=== PATIENT | male | born 1960 | race Hispanic/Latino ===

== ENCOUNTER 2022-08-07 07:45 | Day surgery (SDC) | payer OTHER ==
[2022-08-05 11:19] LABS: BASOPHILS % (AUTO) 0.8 % (0.0-5.0); EOSINOPHILS % (AUTO) 2.7 % (0.0-8.0); HEMATOCRIT 37.4 % (42-54); LYMPHOCYTES % (AUTO) 22.2 % (21.0-51.0); MEAN CORPUSCULAR HEMOGLOBIN 26.6 pg (27.0-33.0); MEAN CORPUSCULAR HGB CONC 31.8 g/dL (32.0-36.0); MEAN CORPUSCULAR VOLUME 83.5 fL (79-99); MONOCYTES % (AUTO) 11.3 % (3.0-13.0); NEUTROPHILS % (AUTO) 62.5 % (40.0-77.0); PLATELET COUNT (AUTO) 189 K/uL (130-400); RED BLOOD CELL COUNT(AUTO) 4.48 MIL/uL (4.50-6.20); WHITE BLOOD COUNT (AUTO) 7.4 K/uL (4.8-10.8)
[2022-08-05 11:25] LABS: ALBUMIN 3.5 g/dL (3.5-5.0)
[2022-08-05 11:37] LABS: CRP QUANTITATIVE < 2.00 mg/L (0.00-9.0)
[2022-08-06 11:18] VITALS: BP 136/73
[2022-08-07] VITALS (18 sets, daily range): BP systolic 98–131; BP diastolic 60–76
[~2022-08-07] VITALS: Ht 182.9 cm; Wt 112.7 kg
[~2022-08-07 07:45] MED LIST: ASCO500C18 PO; ATOR-2 PO; BUPIVACAINE/PF 0.25% 30ML VIAL IJ ONE; CEFAZOLIN SODIUM 1 GM VIAL IVP SCH; FISH1CAP20 PO; GABA300C PO; HYDR-3421 PO; HYDR25TA PO; LISI20TA24 PO; METF750T46 PO; METO-409 PO; NALO4SPR3 NS; [UNRECOGNIZED DRUG - CODE] TP; [UNRECOGNIZED DRUG - OTHER] TP; vitamin d PO
[2022-08-07] MEDS ORDERED: 0.9%NACL 1000ML 1,000 ML IV ONE (08:07)
[2022-08-07] MEDS ORDERED: MIDAZOLAM HCL 1 MG/ML 2ML VIAL ONE (08:56)
[2022-08-07] MEDS ORDERED: FENTANYL CITRATE PF 50 MCG/1 ML 2ML VIAL ONE (08:56)
[2022-08-07] MEDS ORDERED: PROPOFOL 10 MG/ML 20ML VIAL IV ONE (08:56)
[2022-08-07] MEDS ORDERED: ONDANSETRON 4MG INJ ONE ×2 (09:02→10:46)
[2022-08-07] MEDS ORDERED: DEXAMETHASONE SOD PHOSPHATE 10MG/ML 1ML VIAL ONE (09:02)
[2022-08-07] MEDS ORDERED: KETOROLAC 30MG VIAL (30MG/ML) ONE (09:02)
[2022-08-07] MEDS ORDERED: MEPERIDINE-PF 25 MG/ML SYG ONE (10:46)
== END 2022-08-07 13:15 | disposition home or self-care (01) ==
LOC: DAH 07:45
PROVIDERS: ATTEND Student in an Organized Health Care Education/Training Program
DX: S83.231A Complex tear of medial meniscus, current injury, right knee, initial encounter (principal); S83.281A Other tear of lateral meniscus, current injury, right knee, initial encounter; M94.261 Chondromalacia, right knee; E11.9 Type 2 diabetes mellitus without complications; I25.10 Atherosclerotic heart disease of native coronary artery without angina pectoris; I25.2 Old myocardial infarction; X58.XXXA Exposure to other specified factors, initial encounter; Y93.89 Activity, other specified; Y92.89 Other specified places as the place of occurrence of the external cause
CPT/HCPCS: 87426; 84134; 85025; 86140; 82040; 36415; 29881; 82948; A4663; J3010; J0690; J1100; J7030; J3490; J2250; J2704; J2405 ×2; J1885; J2175; A6223; A4215; A4223; A4222; A4221; A6450